=== PATIENT | male | born 1955 | race Hispanic/Latino ===

== ENCOUNTER 2017-03-16 22:22 | Emergency (ER) | payer MEDICARE, MEDICAID ==
[~2017-03-16] VITALS: Ht 172.7 cm; Wt 85.7 kg
[2017-03-16 22:30] VITALS: BP 174/92
[2017-03-16] MEDS ORDERED: CLON0.3T PO (22:35)
[2017-03-16] MEDS ORDERED: VERA240C2 PO (22:35)
[2017-03-16] MEDS ORDERED: LISI-410 PO (22:35)
[2017-03-16] MEDS ORDERED: METH10TA2 PO (22:35)
--- NOTE | 2017-03-16 22:35 | NUR ---
STATUS PT ALERT, ANSWERS QUESTIONS APPROPRIATELY, COOPERATIVE, DENIES INJURY
--- NOTE | 2017-03-16 22:57 | ER.PDOC ---
General Chief Complaint: General Complaint Stated Complaint: PASSED OUT Time seen by MD: 22:49 Source: patient Exam Limitations: no limitations History of Present Illness Initial Comments 61 year old [place] with passing out spells. Patient reports that he had three previous episodes like this before. He was in his truck less than an hour prior to consult when he passed out while in his truck. Local police department picked him up for public intoxication but requests to be seen at the hospital. Claims he is doing alright. Timing/Prior Episodes: remote history Precipitating Factors: other (etoh use) Location of Injury: None Current Symptoms: back to normal Allergies: Coded Allergies: codeine (Verified Allergy, Unknown, 03/16/17) piperacillin (Verified Allergy, Unknown, 03/16/17) sulfamethoxazole (Verified Allergy, Unknown, 03/16/17) tazobactam (Verified Allergy, Unknown, 03/16/17) trimethoprim (Verified Allergy, Unknown, 03/16/17) Home Meds Reported Medications Methadone Hcl (METHADONE HCL) 10 Mg Tablet, 10 MG PO DAILY, TABLET 03/16/17 Verapamil Hcl (VERAPAMIL ER) 240 Mg Cap24h.pel, 240 MG PO DAILY 03/16/17 Lisinopril (LISINOPRIL) 20 Mg Tablet, 20 MG PO DAILY, TABLET 03/16/17 Clonidine Hcl (CLONIDINE HCL) 0.3 Mg Tablet, 0.3 MG PO HS, TABLET 03/16/17 Past Medical History Medical History: cardiac problems, heart attack, hypertension Social History Smoking: cigarettes, less than 1 pack/day Alcohol Use: occassionally Drug Use: none Review of Systems Constitutional: see HPI EENTM: denies no symptoms reported, denies see HPI, denies eye pain, denies blurred vision, denies tearing, denies double vision, denies ear pain, denies ear discharge, denies nose pain, denies nose congestion, denies throat pain, denies throat swelling, denies mouth pain, denies mouth swelling, denies other Respiratory: denies no symptoms reported, denies see HPI, denies cough, denies orthopnea, denies shortness of breath, denies stridor, denies wheezing, denies other Cardiovascular: denies no symptoms reported, denies see HPI, denies chest pain , denies edema, denies palpitations, denies syncope, denies other Gastrointestinal: denies no symptoms reported, denies see HPI, denies abdominal pain, denies constipation, denies diarrhea, denies nausea, denies vomiting, denies other Genitourinary: denies no symptoms reported, denies see HPI, denies discharge, denies dysuria, denies frequency, denies hematuria, denies pain, denies other Musculoskeletal: denies no symptoms reported, denies see HPI, denies back pain , denies gout, denies joint pain, denies joint swelling, denies muscle pain, denies muscle stiffness, denies neck pain, denies other Skin: denies no symptoms reported, denies see HPI, denies change in color, denies change in hair/nails, denies dryness, denies lesions, denies lumps, denies rash, denies other Psychiatric/Neurological: no symptoms reported Physical Exam General Appearance: No Apparent Distress, WD/WN HEENT: PERRL/EOMI, Normal ENT Inspection, TMs Normal, Pharynx Normal Neck: Non-Tender, Full Range of Motion, Supple, Normal Inspection Cardiovascular/Respiratory: Regular Rate, Rhythm, No M/R/G, Normal Peripheral Pulses, No JVD, Normal Breath Sounds, No Respiratory Distress Gastrointestinal: Normal Bowel Sounds, No Organomegaly, No Pulsatile Mass, Non Tender, Soft Extremities: Normal Range of Motion, Non-Tender, Normal Inspection, No Pedal Edema, No Calf Tenderness, Normal Capillary Refill Psychiatric: Alert, Oriented x 3 Cranial Nerves: Normal Hearing, Normal Speech, PERRL Coordination/Gait: Normal Finger to Nose, Normal Gait, Negative Romberg's Sign Motor/Sensory: No Motor Deficit, No Sensory Deficit, No Pronator Drift, Negative Babinski's Sign Skin: Normal Color, Warm/Dry Lymphatic: No Adenopathy Departure Time of Disposition: 22:55 Disposition: 01 HOME, SELF-CARE Impression: Primary Impression: Syncope Additional Impression: Alcohol use Condition: Against Medical Advice Referrals: PCP,UNKNOWN (PCP) PRIMARY CARE PROVIDER Additional Instructions: Patient refused any test or imaging study Patient home against medical advice Problem Qualifiers Primary Impression: Syncope Syncope type: unspecified Qualified Codes: R55 - Syncope and collapse SUDEEP RODRIGUEZ MD Mar 16, 2017 22:57
--- NOTE | 2017-03-16 23:09 | NUR ---
PT CHARGING HIS CELL PHONE TO FIND NUMBER TO CALL FOR [facility].
--- NOTE | 2017-03-16 23:40 | NUR ---
AMA DR RODRIGUEZ REPORTED HE HAD SPOKE WITH PT ABOUT CT SCAN AND LAB WORK, PT DECLINED TESTING, AMA DISCUSSED, PT SIGNED AMA PAPERWORK.
== END 2017-03-16 23:40 | disposition home or self-care (01) ==
LOC: ER 22:22 → EDBD 22:22 → ER 23:40
DX: R55 Syncope and collapse (principal); I10 Essential (primary) hypertension; I25.2 Old myocardial infarction; F10.10 Alcohol abuse, uncomplicated; F17.210 Nicotine dependence, cigarettes, uncomplicated; Z88.0 Allergy status to penicillin; Z79.899 Other long term (current) drug therapy; Z88.2 Allergy status to sulfonamides; Z88.5 Allergy status to narcotic agent
CPT/HCPCS: 93005; 99283

== ENCOUNTER → 2018-10-13 | Outpatient (CLI) | payer MEDICARE ==
[~2018-10-13] MED LIST: CLON0.3T PO; LISI-410 PO; METH10TA2 PO; VERA240C2 PO
== END | disposition home or self-care (01) ==
LOC: NPLAB 15:36
PROVIDERS: ATTEND Nurse Practitioner Family
DX: N45.1 Epididymitis (principal)
CPT/HCPCS: 87086